=== PATIENT | female | born 1970 | race Caucasian/White ===

== ENCOUNTER → 2018-01-12 | Day surgery (SDC) | payer OTHER ==
[~2018-01-12] MED LIST: LIDOCAINE 2% PF Vial for OR 5 ML VIAL.; PROPOFOL 20 ML IV
[2018-01-12 06:29] LABS: POC GLUCOSE 112 mg/dL (70-99)
[2018-01-12] MEDS: IV RINGERS,LACTATED 1000ML 1,000 ML IV (06:32)
== END | disposition home or self-care (01) ==
LOC: ENDOS 05:55
DX: K22.2 Esophageal obstruction (principal); I10 Essential (primary) hypertension; E11.9 Type 2 diabetes mellitus without complications; Z88.5 Allergy status to narcotic agent; E66.9 Obesity, unspecified; Z68.36 Body mass index [BMI] 36.0-36.9, adult; Z79.82 Long term (current) use of aspirin; Z79.899 Other long term (current) drug therapy; Z90.49 Acquired absence of other specified parts of digestive tract; Z90.710 Acquired absence of both cervix and uterus; Z88.8 Allergy status to other drugs, medicaments and biological substances; Z86.73 Personal history of transient ischemic attack (TIA), and cerebral infarction without residual deficits; Z72.0 Tobacco use; Z79.84 Long term (current) use of oral hypoglycemic drugs
CPT/HCPCS: 43235; 82962; J2001; J2704

== ENCOUNTER → 2018-03-25 | Outpatient (CLI) | payer OTHER ==
[2018-01-12 07:38] VITALS: BP 125/61
[~2018-03-25] MED LIST changes: +ALEN35TA6 PO; +ASPI81TA50 PO; +ATOR40TA59 PO; +CALC1TAB75 PO; +CEPH-264 PO; +CHOL100013 PO; +CRESTOR5 MG PO; +HYDR-971 PO; -LIDOCAINE 2% PF Vial for OR 5 ML VIAL.; +LORA10TA3 PO; +LOSA50TA7 PO; +METF500T16 PO; +MOME13HF2 IH; +NAPR-514 PO; +ONDA4TAB10 SL; +OXYB5TAB7 PO; +PROAIR HFA8.5 GM INH; -PROPOFOL 20 ML IV; +TRAM50TA PO
--- NOTE | 2018-03-25 09:24 | RAD ---
Chest, 2 views, 03/25/2018: HISTORY: Chest pain The heart size and pulmonary vascularity are normal. There is minimal linear atelectasis or scarring laterally in the left base. The lungs are otherwise clear. There is no evidence of pleural fluid. Minimal spurring is present in the spine. Surgical clips are evident in the upper abdomen. IMPRESSION: Minimal left basilar linear atelectasis or scarring. Electronically signed by: Da Garcia MD (03/25/2018 9:20 AM) [facility]
--- NOTE | 2018-03-25 10:44 | RAD ---
DATE: 03/25/2018 EXAM: MAMMO JAXON ELVING RT, BREAST RIGHT HISTORY: Right breast pain COMPARISON: 08/31/2017 This study was interpreted with the benefit of Computerized Aided Detection (CAD). Breast Density: SCATTERED The breast parenchyma shows scattered fibroglandular densities. Breast parenchyma level B. FINDINGS: 2-D and 3-D tomosynthesis imaging was performed in CC and MLO projections. No new or enlarging breast densities are seen. Minimal benign type calcification is present. No suspicious microcalcifications have developed. Right breast ultrasound, 03/25/2018: A targeted ultrasound exam of the inferior aspect right breast was performed in the area of reported pain. Heterogeneous fibroglandular shadows are present. No mass or unusual fluid collection is seen. IMPRESSION: 1. Stable right mammograms without evidence of malignancy. 2. The targeted ultrasound exam of the inferior aspect of the right breast reveals no abnormality. 3. Clinical surveillance is suggested. BI-RADS CATEGORY: 2 BENIGN FINDING(S) RECOMMENDED FOLLOW-UP: 12M 12 MONTH FOLLOW-UP PQRS compliance statement: Patient information was entered into a reminder system with a target due date for the next mammogram. Mammography is a sensitive method for finding small breast cancers, but it does not detect them all and is not a substitute for careful clinical examination. A negative mammogram does not negate a clinically suspicious finding and should not result in delay in biopsying a clinically suspicious abnormality. "Our facility is accredited by the [employer] Mammography Program."
== END | disposition home or self-care (01) ==
LOC: US 07:42
PROVIDERS: ATTEND Family Medicine
DX: M46.04 Spinal enthesopathy, thoracic region (principal); N64.4 Mastodynia
CPT/HCPCS: 71046; 76641; 77065; G0279; 77061

== ENCOUNTER 2018-10-23 15:18 | Emergency (ER) | payer MEDICARE, MEDICAID ==
[~2018-10-23] VITALS: Ht 157.5 cm; Wt 98.9 kg
[~2018-10-23 15:18] MED LIST changes: +ALBU2.5V8 INH; +HYDR-3164 PO; -HYDR-971 PO; +LOSA-73 PO; -LOSA50TA7 PO; -PROAIR HFA8.5 GM INH
[2018-10-23 17:39] LABS: BILIRUBIN,URINE NEGATIVE (NEG); CLARITY,URINE CLEAR; COLOR,URINE YELLOW; NITRITE,URINE NEGATIVE (NEG); PH,URINE 5.5; PROTEIN,URINE NEGATIVE (NEG-TRACE); UROBILINOGEN,URINE 0.2 mg/dL (0.2 mg/dL)
[2018-10-23 17:47] LABS: BASO % 0 % (0-3); EOS # 0.1 x10^3/uL (0.0-0.7); EOS % 1 % (0-3); HEMATOCRIT 48.7 % (36.0-47.0); HEMOGLOBIN 16.9 g/dL (12.0-15.5); LYMPH # 1.5 x10^3/uL (1.0-4.8); LYMPH % 19 % (24-48); MEAN CORPUSCULAR HEMOGLOBIN 34 pg (25-35); MEAN CORPUSCULAR HGB CONC 35 g/dL (31-37); MEAN CORPUSCULAR VOLUME 98 fL (79-100); MONO # 0.5 x10^3/uL (0.0-1.1); MONO % 6 % (0-9); NEUT # 5.9 x10^3uL (1.8-7.7); NEUT % 74 % (31-73); PLATELET COUNT 196 x10^3/uL (140-400); RED BLOOD COUNT 4.99 x10^6/uL (3.50-5.40); RED CELL DISTRIBUTION WIDTH 13.3 % (11.5-14.5); WHITE BLOOD COUNT 8.1 x10^3/uL (4.0-11.0)
[2018-10-23 17:53] LABS: BACTERIA,URINE FEW /HPF (0-FEW); RBC,URINE 0 /HPF (0-2); SQUAMOUS EPITHELIAL CELL,UR FEW /LPF; WBC,URINE 0 /HPF (0-4)
[2018-10-23 17:56] LABS: CREATININE 0.7 mg/dL (0.6-1.0); GFR 89.3
[2018-10-23 18:08] LABS: ALBUMIN 3.8 g/dL (3.4-5.0); ALBUMIN/GLOBULIN RATIO 0.9 (1.0-1.7); TOTAL BILIRUBIN 0.5 mg/dL (0.2-1.0)
[2018-10-23] MEDS ORDERED: IV NORMAL SALINE 1000ML BAG 1,000 ML IV ONE (18:30)
[2018-10-23 19:15] VITALS: BP 131/78
--- NOTE | 2018-10-23 19:43 | PHYS DOC ---
Past Medical History Past Medical History: Diabetes-Type II, GERD, High Cholesterol, Hypertension, [place], Stroke Additional Past Medical Histor: 2 STROKES, [place] 2000 (ABDULKADIR VELASCO APRN) Past Surgical History: No Surgical History, Cholecystectomy, Hysterectomy, Tubal ligation (ABDULKADIR VELASCO APRN) Alcohol Use: None Drug Use: None (ABDULKADIR VELASCO APRN) Adult General Chief Complaint Chief Complaint: HYPERGLYCEMIA HPI HPI 48 y/o female presents to ER for c/o her BS may be high. She reports she hasn't been feeling good today with generalized fatigue. Pt denies CP, SOA, palpitations, abd pain, N/V/D, increased thirst/urination, or lethargy. She reports she came to ER to have her BS checked as it had been in the 200s at home- with her reporting at 1644 BS was 271 and that she had eaten today. She reports she hasn't drank as much water today. She denies any recent illness. She reports she had UTI and yeast infection 2 wks ago which was tx'd and sxs reso lved. She reports her doctor had changed her Metformin dose 2 wks ago d/t elevated A1c and is scheduled to go back in for f/u in 2 wks she thinks- uncertain as to appt. She reports she was increased to 1000 mg BID. (ABDULKADIR VELASCO APRN) Review of Systems Review of Systems Constitutional: Denies fever or chills. Reports feels fatigued- denying lethargy Eyes: Denies change in visual acuity, redness, or eye pain [] HENT: Denies nasal congestion or sore throat [] Respiratory: Denies cough or shortness of breath [] Cardiovascular: Denies CP/palpitations GI: Denies abdominal pain, nausea, vomiting, bloody stools or diarrhea [] : Denies dysuria or hematuria [] Musculoskeletal: Denies back/neck pain or joint pain [] Integument: Denies rash or skin lesions [] Neurologic: Denies headache, focal weakness or sensory changes. Reports just not feeling right- denies dizziness Endocrine: Denies polyuria or polydipsia [] All other systems were reviewed and found to be within normal limits, except as documented in this note. (ABDULKADIR VELASCO APRN) Current Medications Current Medications Current Medications Medications (Trade) Dose Ordered Sig/Jung Start Time Stop Time Status Last Admin Dose Admin Sodium Chloride 1,000 ml @ 1,000 mls/hr 1X ONCE 10/23/18 18:30 10/23/18 19:29 DC 10/23/18 18:27 1,000 MLS/HR (VISHNU CORNEJO MD) Allergies Allergies Allergies Coded Allergies Type Severity Reaction Last Updated Verified famotidine Allergy Intermediate 01/12/18 No morphine Allergy Intermediate 01/12/18 No (VISHNU CORNEJO MD) Physical Exam Physical Exam Constitutional: Well developed, well nourished, no acute distress, non-toxic appearance. Clear speech HENT: Normocephalic, atraumatic, bilateral ears normal, mucous membranes pink/dry, no oral exudates, nose normal. [] Eyes: 3mm PERRLA, EOMI- no pain with eye movements, no nystagmus, conjunctiva normal, no discharge. [] Neck: Normal range of motion, no tenderness, supple, no stridor. [] Cardiovascular: Heart rate regular rhythm, no murmur [] Lungs & Thorax: Bilateral breath sounds clear to auscultation- resp. equal/n onlabored Abdomen: Bowel sounds normal, soft, no tenderness, no masses, no pulsatile masses. [] Skin: Warm, dry, no erythema, no rash. [] Back: No tenderness, no CVA tenderness. [] Extremities: No tenderness, no cyanosis, no clubbing, ROM intact, no edema. [] Neurologic: Alert and oriented X 3, normal motor function, normal sensory function, no focal deficits noted. Produce Sorter equal. Symmetric facial features. No drift in extremities during exam Psychologic: Affect normal, judgement normal, mood normal. [] (ABDULKADIR VELASCO APRN) Current Patient Data Vital Signs Vital Signs Date Time Temp Pulse Resp B/P (MAP) Pulse Ox O2 Delivery O2 Flow Rate FiO2 10/23/18 19:15 82 16 131/78 (95) 100 Room Air 10/23/18 16:51 97.9 97.9 (VISHNU CORNEJO MD) Lab Values Laboratory Tests Test 10/23/18 16:44 10/23/18 17:24 10/23/18 17:40 10/23/18 19:28 Glucose (Fingerstick) 271 mg/dL (70-99) H 190 mg/dL (70-99) H Urine Collection Type Void Urine Color Yellow Urine Clarity Clear Urine pH 5.5 Urine Specific [place] >=1.030 Urine Protein Negative mg/dL (NEG-TRACE) Urine Glucose (UA) >=1000 mg/dL (NEG) Urine Ketones (Stick) Negative mg/dL (NEG) Urine Blood Negative (NEG) Urine Nitrite Negative (NEG) Urine Bilirubin Negative (NEG) Urine Urobilinogen Dipstick 0.2 mg/dL (0.2 mg/dL) Urine Leukocyte Esterase Negative (NEG) Urine RBC 0 /HPF (0-2) Urine WBC 0 /HPF (0-4) Urine Squamous Epithelial Cells Few /LPF Urine Bacteria Few /HPF (0-FEW) White Blood Count 8.1 x10^3/uL (4.0-11.0) Red Blood Count 4.99 x10^6/uL (3.50-5.40) Hemoglobin 16.9 g/dL (12.0-15.5) H Hematocrit 48.7 % (36.0-47.0) H Mean Corpuscular Volume 98 fL (79-100) Mean Corpuscular Hemoglobin 34 pg (25-35) Mean Corpuscular Hemoglobin Concent 35 g/dL (31-37) Red Cell Distribution Width 13.3 % (11.5-14.5) Platelet Count 196 x10^3/uL (140-400) Neutrophils (%) (Auto) 74 % (31-73) H Lymphocytes (%) (Auto) 19 % (24-48) L Monocytes (%) (Auto) 6 % (0-9) Eosinophils (%) (Auto) 1 % (0-3) Basophils (%) (Auto) 0 % (0-3) Neutrophils # (Auto) 5.9 x10^3uL (1.8-7.7) Lymphocytes # (Auto) 1.5 x10^3/uL (1.0-4.8) Monocytes # (Auto) 0.5 x10^3/uL (0.0-1.1) Eosinophils # (Auto) 0.1 x10^3/uL (0.0-0.7) Basophils # (Auto) 0.0 x10^3/uL (0.0-0.2) Sodium Level 132 mmol/L (136-145) L Potassium Level 4.0 mmol/L (3.5-5.1) Chloride Level 95 mmol/L (98-107) L Carbon Dioxide Level 25 mmol/L (21-32) Anion Gap 12 (6-14) Blood Urea Nitrogen 8 mg/dL (7-20) Creatinine 0.7 mg/dL (0.6-1.0) Estimated GFR (Cockcroft-Gault) 89.3 BUN/Creatinine Ratio 11 (6-20) Glucose Level 257 mg/dL (70-99) H Calcium Level 9.0 mg/dL (8.5-10.1) Total Bilirubin 0.5 mg/dL (0.2-1.0) Aspartate Amino Transferase (AST) 23 U/L (15-37) Alanine Aminotransferase (ALT) 59 U/L (14-59) Alkaline Phosphatase 111 U/L (46-116) Troponin I Quantitative < 0.017 ng/mL (0.000-0.055) Total Protein 8.0 g/dL (6.4-8.2) Albumin 3.8 g/dL (3.4-5.0) Albumin/Globulin Ratio 0.9 (1.0-1.7) L Laboratory Tests 10/23/18 17:40 Laboratory Tests 10/23/18 17:40 (VISHNU CORNEJO MD) EKG EKG EKG obtained 10/23/18 at 1832 Interpreted by ER physician Sinus rhythm Ltward axis Nonspec. ST/T wave changes Rate 82 No STEMI (ABDULKADIR VELASCO APRN) Radiology/Procedures Radiology/Procedures [] (ABDULKADIR VELASCO APRN) Course & Med Decision Making Course & Med Decision Making Pertinent Labs and Imaging studies reviewed. (See chart for details) 1930: On re-evaluation patient reports she is feeling better after IV fluids. Test results were discussed- initial accu check was 271 on labs BS was 257 with NL renal function. EKG was obtained as pt was vague on complaints just reporting she didn't feel right/concerns for BS. EKG with no acute ST elevation/STEMI and troponin was <0.017- she had denied any CP/palpitations. UA neg. for infection. H&H elevated and so discussed possible dehydration as pt reported improved sxs/feeling better with IV flds. Encouraged pt to drink adequate water daily. Patient plans to call her primary care physician for reevaluation on her blood sugars. Patient advised on keeping BS diary and taking that with her to her appointment. Recheck of blood sugar after IV fluids was 190- patient had no ketones in her UA and her anion gap was normal limits on labs at 12. Education provided on s&s to return to ER for and d/c instructions were discussed. Pt is smiling during d/c discussion sitting on side of bed- no visible distress. (ABDULKADIR VELASCO APRN) Course & Med Decision Making Staff Physician Addendum: I was working in the ER during the course of this patient's visit. I was available for consultation as needed, but I was not directly involved in the care of this patient. (VISHNU CORNEJO MD) Dragon Disclaimer Dragon Disclaimer This electronic medical record was generated, in whole or in part, using a voice recognition dictation system. (ABDULKADIR VELASCO APRN) Departure Departure Impression: Primary Impression: Elevated blood sugar Disposition: 01 HOME, SELF-CARE Condition: STABLE Referrals: BETTY ADDISON MD (PCP) Patient Instructions: Hyperglycemia Additional Instructions: Drink plenty of water daily. Continue to monitor your blood sugars and keep a diary to take with you to your doctor's appointment. Follow-up with your doctor for re-evaluation and further care. ABDULKADIR VELASCO APRN October 23, 2018 19:43 VISHNU CORNEJO MD October 30, 2018 21:50
--- NOTE | 2018-10-24 06:38 | EKG ---
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 CONSIDER INFERIOR INFARCT Electronically Signed On 10-26-2018 16:05:39 CDT by Marcello Carl
== END 2018-10-23 20:06 | disposition home or self-care (01) ==
LOC: ER 15:18
DX: E11.65 Type 2 diabetes mellitus with hyperglycemia (principal); E78.00 Pure hypercholesterolemia, unspecified; K21.9 Gastro-esophageal reflux disease without esophagitis; I10 Essential (primary) hypertension; I25.2 Old myocardial infarction; Z90.49 Acquired absence of other specified parts of digestive tract; Z90.710 Acquired absence of both cervix and uterus; Z98.51 Tubal ligation status; Z88.5 Allergy status to narcotic agent; Z88.8 Allergy status to other drugs, medicaments and biological substances
CPT/HCPCS: 36415; 80053; 81001; 82962; 84484; 85025; 93005; 96360; 99285; J7030

== ENCOUNTER → 2019-04-01 | Outpatient (CLI) | payer MEDICARE, MEDICAID ==
[~2019-04-01] MED LIST changes: +ALEN35TA11 PO; -ALEN35TA6 PO; +OXYB5TAB10 PO; -OXYB5TAB7 PO
--- NOTE | 2019-04-04 13:10 | RAD ---
DATE: 04/01/2019 EXAM: DIGITAL SCREEN BILAT W/CAD HISTORY: Routine screening COMPARISON: 09/07/2016 and 08/31/2017 mammographic exams This study was interpreted with the benefit of Computerized Aided Detection (CAD). Breast Density: FATTY The breast parenchyma is primarily fatty replaced. Breast parenchyma level density A. FINDINGS: Stable IMPRESSION: No suspicious mass, calcification, or distortion. BI-RADS CATEGORY: 1 NEGATIVE RECOMMENDED FOLLOW-UP: 12M 12 MONTH FOLLOW-UP PQRS compliance statement: Patient information was entered into a reminder system with a target due date for the next mammogram. Mammography is a sensitive method for finding small breast cancers, but it does not detect them all and is not a substitute for careful clinical examination. A negative mammogram does not negate a clinically suspicious finding and should not result in delay in biopsying a clinically suspicious abnormality. "Our facility is accredited by the [employer] Mammography Program."
== END | disposition home or self-care (01) ==
LOC: MAMMO 07:13
PROVIDERS: ATTEND Family Medicine
DX: Z12.31 Encounter for screening mammogram for malignant neoplasm of breast (principal)
CPT/HCPCS: 77067

== ENCOUNTER 2019-05-01 10:08 | Emergency (ER) | payer MEDICARE, MEDICAID ==
[~2019-05-01] VITALS: Ht 157.5 cm; Wt 87.1 kg
[2019-05-01] MEDS ORDERED: KETOROLAC 30 MG/ML VIAL. IVP ONE (10:45)
--- NOTE | 2019-05-01 10:46 | PHYS DOC ---
Past Medical History Past Medical History: Diabetes-Type II, GERD, High Cholesterol, Hypertension, [place], Stroke Additional Past Medical Histor: 2 STROKES, [place] 2001,herpes Past Surgical History: Cholecystectomy, Hysterectomy, Tubal ligation Alcohol Use: None Drug Use: None Adult General Chief Complaint Chief Complaint: SHOULDER INJURY HPI HPI Patient is a 48-year-old female who presents to the emergency department for evaluation. She states that she developed right shoulder pain, overnight, and has pain with movement of her shoulder. She denies any injury, fevers, neck pain, numbness, or weakness. Palpation of her right shoulder as well as attempted movement worsen her pain. There are no alleviating factors to her symptoms. She denies any chest pain or shortness of breath. Review of Systems Review of Systems Constitutional: Denies fever or chills [] Eyes: Denies change in visual acuity, redness, or eye pain [] HENT: Denies nasal congestion or sore throat [] Respiratory: Denies cough or shortness of breath [] Cardiovascular: The patient denies any shortness of breath, chest pain, palpitations, or orthopnea [] GI: Denies abdominal pain, nausea, vomiting, bloody stools or diarrhea [] : Denies dysuria or hematuria [] Musculoskeletal: Denies back pain or joint pain other than as noted in the history of present illness [] Integument: Denies rash or skin lesions [] Neurologic: Denies headache, focal weakness or sensory changes [] Endocrine: Denies polyuria or polydipsia [] All other systems were reviewed and found to be within normal limits, except as documented in this note. Current Medications Current Medications Current Medications Medications (Trade) Dose Ordered Sig/Jung Start Time Stop Time Status Last Admin Dose Admin Ketorolac Tromethamine (Toradol 30mg Vial) 30 mg 1X ONCE 05/01/19 10:45 05/01/19 10:46 DC 05/01/19 11:04 30 MG Allergies Allergies Allergies Coded Allergies Type Severity Reaction Last Updated Verified famotidine Allergy Intermediate 01/12/18 No morphine Allergy Intermediate 01/12/18 No Physical Exam Physical Exam PHYSICAL EXAM: CONSTITUTIONAL: Well developed, well nourished HEAD: normocephalic, atraumatic EENT: PERRL, EOMI. Conjunctivae normal color, sclerae non-icteric; moist mucous membranes. NECK: Supple, non-tender; no meningismus. LUNGS: Lungs CTA, breathing even and unlabored. Normal air movement. HEART: Regular rate and rhythm, no murmur CHEST: No deformity; non-tender ABDOMEN: The abdomen is soft, and non-tender, no masses or bruits. EXTREM: There is tenderness to palpation of the right shoulder with limited range of motion in the right shoulder secondary to pain, but internal Lexxel or rotation as well as flexion and extension are intact and present, and at approximately 30 of movement in any direction or not particularly tender. There is no warmth or erythema or significant deformity or swelling noted to the right shoulder joint. The remainder the right upper extremity is nontender with normal range of motion in the elbow, hand, and wrist, with normal sensation distally. The remainder the extremities are atraumatic, with Normal ROM; no deformity, no calf tenderness. Normal pulses palpable in all extremities. There is no pedal edema. SKIN: No rash; no diaphoresis NEURO: Alert; normal speech and cognition; CN's grossly intact; strength grossly intact without focal deficit. BACK: No CVA TTP. Current Patient Data Vital Signs Vital Signs Date Time Temp Pulse Resp B/P (MAP) Pulse Ox O2 Delivery O2 Flow Rate FiO2 05/01/19 10:26 98.2 72 18 157/74 (101) 100 Room Air 98.2 Lab Values Laboratory Tests Test 05/01/19 10:45 05/01/19 11:30 White Blood Count 10.5 x10^3/uL (4.0-11.0) Red Blood Count 4.59 x10^6/uL (3.50-5.40) Hemoglobin 16.1 g/dL (12.0-15.5) H Hematocrit 46.3 % (36.0-47.0) Mean Corpuscular Volume 101 fL (79-100) H Mean Corpuscular Hemoglobin 35 pg (25-35) Mean Corpuscular Hemoglobin Concent 35 g/dL (31-37) Red Cell Distribution Width 13.8 % (11.5-14.5) Platelet Count 214 x10^3/uL (140-400) Neutrophils (%) (Auto) 67 % (31-73) Lymphocytes (%) (Auto) 25 % (24-48) Monocytes (%) (Auto) 6 % (0-9) Eosinophils (%) (Auto) 2 % (0-3) Basophils (%) (Auto) 1 % (0-3) Neutrophils # (Auto) 7.0 x10^3/uL (1.8-7.7) Lymphocytes # (Auto) 2.7 x10^3/uL (1.0-4.8) Monocytes # (Auto) 0.6 x10^3/uL (0.0-1.1) Eosinophils # (Auto) 0.2 x10^3/uL (0.0-0.7) Basophils # (Auto) 0.1 x10^3/uL (0.0-0.2) Erythrocyte Sedimentation Rate 9 (0-25) Sodium Level 135 mmol/L (136-145) L Potassium Level 4.1 mmol/L (3.5-5.1) Chloride Level 101 mmol/L (98-107) Carbon Dioxide Level 25 mmol/L (21-32) Anion Gap 9 (6-14) Blood Urea Nitrogen 6 mg/dL (7-20) L Creatinine 0.7 mg/dL (0.6-1.0) Estimated GFR (Cockcroft-Gault) 89.3 Glucose Level 170 mg/dL (70-99) H Calcium Level 8.7 mg/dL (8.5-10.1) C-Reactive Protein, Quantitative 7.3 mg/L (0-3.3) H Laboratory Tests 05/01/19 10:45 Laboratory Tests 05/01/19 11:30 EKG EKG [] Radiology/Procedures Radiology/Procedures PROCEDURE: SHOULDER 2+V RIGHT Examination: SHOULDER 2+V RIGHT History: Right shoulder pain, limited range of motion Comparison/Correlation: None Findings: Portable 3 view right shoulder series was performed. Joint spaces are normal. No fracture or bony destruction. No definite degenerative change. Right lung field is unremarkable. Impression: No acute process. Unremarkable exam.[] Course & Med Decision Making Course & Med Decision Making Pertinent Labs and Imaging studies reviewed. (See chart for details) []2:00 PM: Patient's condition remains stable, she is feeling somewhat better. I discussed test results with the patient, the need for close follow-up with orthopedics, and return precautions in detail. I am not highly suspicious that her symptoms are related to a septic arthritis. She remains with reproducible tenderness to palpation of her shoulder, but no warmth, erythema, or deformity or effusion. Dragon Disclaimer Dragon Disclaimer This electronic medical record was generated, in whole or in part, using a voice recognition dictation system. Departure Departure Impression: Primary Impression: Shoulder pain Disposition: 01 HOME, SELF-CARE Condition: STABLE Referrals: BETTY ADDISON MD (PCP) VALORIE YODER II, MD Patient Instructions: Arthralgia, Shoulder Pain Additional Instructions: Applying ice to the affected area may help improve your symptoms. Do not keep the splint in place for greater than 24 hours at a time without a break to exercise the muscles of her shoulder to prevent "frozen shoulder". Scripts Diclofenac Sodium (DICLOFENAC SODIUM) 50 Mg Tablet.dr 1 TAB PO BID, #20 TAB 0 Refills Prov: MARCELINO STRONG MD 05/01/19 MARCELINO STRONG MD May 01, 2019 10:46
[2019-05-01 10:54] LABS: BASO # 0.1 x10^3/uL (0.0-0.2); BASO % 1 % (0-3); EOS # 0.2 x10^3/uL (0.0-0.7); EOS % 2 % (0-3); HEMATOCRIT 46.3 % (36.0-47.0); HEMOGLOBIN 16.1 g/dL (12.0-15.5); LYMPH # 2.7 x10^3/uL (1.0-4.8); LYMPH % 25 % (24-48); MEAN CORPUSCULAR HEMOGLOBIN 35 pg (25-35); MEAN CORPUSCULAR HGB CONC 35 g/dL (31-37); MEAN CORPUSCULAR VOLUME 101 fL (79-100); MONO # 0.6 x10^3/uL (0.0-1.1); MONO % 6 % (0-9); NEUT % 67 % (31-73); PLATELET COUNT 214 x10^3/uL (140-400); RED BLOOD COUNT 4.59 x10^6/uL (3.50-5.40); RED CELL DISTRIBUTION WIDTH 13.8 % (11.5-14.5); WHITE BLOOD COUNT 10.5 x10^3/uL (4.0-11.0)
--- NOTE | 2019-05-01 11:14 | RAD ---
Examination: SHOULDER 2+V RIGHT History: Right shoulder pain, limited range of motion Comparison/Correlation: None Findings: Portable 3 view right shoulder series was performed. Joint spaces are normal. No fracture or bony destruction. No definite degenerative change. Right lung field is unremarkable. Impression: No acute process. Unremarkable exam. Electronically signed by: Boris Cano MD (05/01/2019 11:11 AM) [facility]
[2019-05-01 11:45] LABS: CALCIUM 8.7 mg/dL (8.5-10.1); CREATININE 0.7 mg/dL (0.6-1.0); GFR 89.3; POTASSIUM 4.1 mmol/L (3.5-5.1)
[2019-05-01 11:49] LABS: C-REACTIVE PROTEIN 7.3 mg/L (0-3.3)
[2019-05-01 14:00] VITALS: BP 129/60
[2019-05-01] MEDS ORDERED: DICL50TA4 PO (14:04)
== END 2019-05-01 14:13 | disposition home or self-care (01) ==
LOC: ER 10:08
DX: M25.511 Pain in right shoulder (principal); E11.9 Type 2 diabetes mellitus without complications; K21.9 Gastro-esophageal reflux disease without esophagitis; E78.00 Pure hypercholesterolemia, unspecified; I10 Essential (primary) hypertension; I25.2 Old myocardial infarction; Z86.73 Personal history of transient ischemic attack (TIA), and cerebral infarction without residual deficits; Z88.5 Allergy status to narcotic agent; Z88.8 Allergy status to other drugs, medicaments and biological substances
CPT/HCPCS: 36415; 73030; 80048; 85025; 85651; 86140; 96374; 99285; J1885

== ENCOUNTER 2019-07-23 14:01 | Emergency (ER) | payer MEDICARE, MEDICAID ==
[~2019-07-23] VITALS: Ht 157.5 cm; Wt 91.0 kg
[~2019-07-23 14:01] MED LIST changes: +DICL50TA4 PO
[2019-07-23 14:20] VITALS: BP 158/71
--- NOTE | 2019-07-23 14:46 | RAD ---
EXAM: Right knee, 3 views. HISTORY: Fall. Pain. COMPARISON: None. FINDINGS: 3 views of the right knee are obtained. There is mild tricompartmental spurring. There is no fracture, dislocation or subluxation. There is no joint effusion. IMPRESSION: No acute osseous finding. Electronically signed by: Sharon Black MD (07/23/2019 2:43 PM) [id number]
[2019-07-23] MEDS ORDERED: NAPROXEN 500 MG TABLET PO STA (14:52)
[2019-07-23] MEDS ORDERED: NAPR-695 PO (15:07)
--- NOTE | 2019-07-23 15:08 | PHYS DOC ---
Past Medical History Past Medical History: Diabetes-Type II, GERD, High Cholesterol, Hypertension, [place], Stroke Additional Past Medical Histor: 2 STROKES, [place] 2000,herpes (PHYLLIS HO APRN) Past Surgical History: Cholecystectomy, Hysterectomy, Tubal ligation (PHYLLIS HO APRN) Alcohol Use: None Drug Use: None (PHYLLIS HO APRN) Adult General Chief Complaint Chief Complaint: KNEE INJURY HPI HPI Patient is a 48 year old female, accompanied by her friend, who presents to the emergency department with complaints of right knee pain. Patient states she has lung sounds some steps when she felt something in the back of her knee. She den ies any fall or traumatic injury. The patient currently rates her pain 8 out of 10 on the pain scale. Patient denies any alleviating factors, the pain increases with weightbearing and ambulation. She denies any numbness, tingling, weakness, or swelling of the affected extremity. All other ROS is neg unless otherwise noted in HPI. (PHYLLIS HO APRN) Review of Systems Review of Systems See Above (PHYLLIS HO APRN) Current Medications Current Medications Current Medications Medications (Trade) Dose Ordered Sig/Jung Start Time Stop Time Status Last Admin Dose Admin Naproxen (Naprosyn) 500 mg 1X STAT 07/23/19 14:52 07/23/19 14:55 DC 07/23/19 14:58 500 MG (LIDIA KURTZ DO) Allergies Allergies Allergies Coded Allergies Type Severity Reaction Last Updated Verified famotidine Allergy Intermediate 01/12/18 No morphine Allergy Intermediate 01/12/18 No (LIDIA KURTZ DO) Physical Exam Physical Exam See Above Constitutional: Well developed, well nourished, no acute distress, non-toxic appearance. [] HENT: Normocephalic, atraumatic, bilateral external ears normal, nose normal. [] Eyes: PERRLA, EOMI, conjunctiva normal, no discharge. [] Neck: Normal range of motion, no stridor. [] Cardiovascular:Heart rate regular rhythm, Lungs & Thorax: Respirations even and unlabored, no retractions, no respiratory distress Skin: Warm, dry, no erythema, no rash. [] Extremities: Diffuse R knee TTP, no crepitus, no deformity, no cyanosis, no clubbing, ROM intact, no edema, negative anterior and posterior drawer testing, pt does not tolerate stress testing. . [] Neurologic: Alert and oriented X 3, no focal deficits noted. [] Psychologic: Affect normal, judgement normal, mood normal. [] (PHYLLIS HO APRN) Current Patient Data Vital Signs Vital Signs Date Time Temp Pulse Resp B/P (MAP) Pulse Ox O2 Delivery O2 Flow Rate FiO2 07/23/19 14:20 98.2 83 16 158/71 (100) 95 Room Air 98.2 (LIDIA KURTZ DO) EKG EKG [] (PHYLLIS HO APRN) Radiology/Procedures Radiology/Procedures PROCEDURE: KNEE RIGHT 3V EXAM: Right knee, 3 views. HISTORY: Fall. Pain. COMPARISON: None. FINDINGS: 3 views of the right knee are obtained. There is mild tricompartmental spurring. There is no fracture, dislocation or subluxation. There is no joint effusion. IMPRESSION: No acute osseous finding.[] (PHYLLIS HO APRN) Course & Med Decision Making Course & Med Decision Making Pertinent Labs and Imaging studies reviewed. (See chart for details) [] (PHYLLIS HO APRN) Dragon Disclaimer Dragon Disclaimer This electronic medical record was generated, in whole or in part, using a voice recognition dictation system. (PHYLLIS HO APRN) Departure Departure Impression: Primary Impression: Pain in right knee Disposition: 01 HOME, SELF-CARE Condition: STABLE Referrals: NO PCP (PCP) VALORIE YODER II, MD Patient Instructions: Knee Pain, [id number] Additional Instructions: Fill prescription(s) and use as directed. Recommend application of ice, elevation, and rest of affected extremity. Wear the pedro wrap that was placed and crutches provided, activity as tolerated. Follow up with your Primary care doctor or Dr. Yoder for further evaluation. Return to the ER if your symptoms worsen. Scripts Naproxen (NAPROXEN) 375 Mg Tablet 1 TAB PO BID for 10 Days, #20 TAB 0 Refills Prov: PHYLLIS HO APRN 07/23/19 Splinting Splinting : Location: R knee Pre-Made Type: pedro wrap Pre-Proc Neuro Vasc Exam: normal Post-Proc Neuro Vasc Exam: normal, unchanged from pre-exam (PHYLLIS HO APRN) Attending Signature Attending Signature I have reviewed the PA/SOCIAL MEDIA PROJECT MANAGER's note and plan of care. I was available for consultation as needed during the patient's visit in the emergency department. I agree with the clinical impression, plan, and disposition. (LIDIA KURTZ DO) PHYLLIS HO APRN Jul 23, 2019 15:08 LIDIA KURTZ DO Jul 26, 2019 14:47
== END 2019-07-23 15:29 | disposition home or self-care (01) ==
LOC: ER 14:01
DX: M25.561 Pain in right knee (principal); E11.9 Type 2 diabetes mellitus without complications; K21.9 Gastro-esophageal reflux disease without esophagitis; E78.00 Pure hypercholesterolemia, unspecified; I10 Essential (primary) hypertension; I25.2 Old myocardial infarction; Z90.49 Acquired absence of other specified parts of digestive tract; Z90.710 Acquired absence of both cervix and uterus; Z98.51 Tubal ligation status; Z88.6 Allergy status to analgesic agent; Z88.8 Allergy status to other drugs, medicaments and biological substances
CPT/HCPCS: 73562; 99284

== ENCOUNTER → 2020-04-02 | Outpatient (CLI) | payer MEDICARE, MEDICAID ==
[~2020-04-02] MED LIST changes: -ALEN35TA11 PO; +ALEN35TA45 PO; +CALC-627 PO; -CALC1TAB75 PO; +NAPR-695 PO
--- NOTE | 2020-04-03 15:47 | RAD ---
DATE: 04/02/2020 8:47 AM EXAM: DIGITAL SCREEN BILAT W/CAD HISTORY: Screening COMPARISON: 04/01/2019 Bilateral full field craniocaudal and mediolateral oblique images were obtained using digital technique. This study was interpreted with the benefit of Computerized Aided Detection (CAD). FINDINGS: Breast Density: FATTY The Breast Parenchyma is primarily fatty replaced. Breast parenchyma level density A. No suspicious masses, microcalcifications or architectural distortion is present to suggest malignancy in either breast. The visualized axillae are unremarkable. IMPRESSION: No mammographic evidence of malignancy. BI-RADS CATEGORY: 1 NEGATIVE RECOMMENDED FOLLOW-UP: 12M 12 MONTH FOLLOW-UP Annual screening mammography is recommended, unless clinically indicated sooner based on symptoms or change in physical exam. PQRS compliance statement: Patient information was entered into a reminder system with a target due date for the next mammogram. Mammography is a sensitive method for finding small breast cancers, but it does not detect them all and is not a substitute for careful clinical examination. A negative mammogram does not negate a clinically suspicious finding and should not result in delay in biopsying a clinically suspicious abnormality. "Our facility is accredited by the [employer] Mammography Program."
== END ==
LOC: MAMMO 08:27
PROVIDERS: ATTEND Family Medicine
DX: Z12.31 Encounter for screening mammogram for malignant neoplasm of breast (principal)
CPT/HCPCS: 77067

== ENCOUNTER → 2021-03-14 | Outpatient (CLI) | payer MEDICARE, MEDICAID ==
[~2021-03-14] MED LIST changes: -ALEN35TA45 PO; +ALEN35TA47 PO
--- NOTE | 2021-03-14 17:37 | RAD ---
EXAMINATION: XR CHEST 2V CLINICAL HISTORY: Cough EXAM DATE/TIME: 03/14/2021 4:09 PM COMPARISON: 03/25/2018 FINDINGS: Lines, Tubes, and Devices: None. Cardiomediastinal Silhouette: Within normal limits. Lungs and Pleura: No evidence of focal airspace consolidation or pleural effusion. Minimal bibasilar subsegmental atelectasis and/or scarring. Pulmonary vasculature unremarkable. Bones and Soft Tissues: No acute osseous abnormality. IMPRESSION: No evidence of acute cardiopulmonary abnormality. Electronically signed by: Andrez Gaston DO (03/14/2021 5:34 PM) [id number]
== END ==
LOC: RAD 15:57
PROVIDERS: ATTEND Family Medicine
DX: R05 Cough (principal)
CPT/HCPCS: 71046

== ENCOUNTER 2021-03-26 05:58 | Day surgery (SDC) | payer MEDICARE, MEDICAID ==
[~2021-03-26] VITALS: Ht 157.5 cm; Wt 83.6 kg
[2021-03-26 06:41] VITALS: BP 128/62
[2021-03-26] MEDS ORDERED: IV RINGERS,LACTATED 1000ML 1,000 ML IV SCH (07:00)
[2021-03-26] MEDS ORDERED: PROPOFOL 10 MG/ML (20ML) VIAL. IV ONE (07:05)
[2021-03-26] MEDS ORDERED: LIDOCAINE 2% PF 5 ML VIAL. ONE (07:05)
--- NOTE | 2021-03-26 07:57 | HP ---
ADMIT DATE: 03/26/2021 UPDATED HISTORY AND PHYSICAL REASON FOR CONSULTATION: Rectal bleeding and weight loss. HISTORY: A 50-year-old female, whose past medical history is significant for osteoporosis, hyperlipidemia, hypertension and diabetes, is seen for diarrhea, weight loss and bleeding. There has been blood filling the toilet, bright red in nature. Weight is down 50+ pounds during this year due to the poor appetite. Family history is positive for colon cancer in grandmother. Her last colonoscopy was over 3 years ago without pathology. With continued issues, she requests additional evaluation. PAST MEDICAL HISTORY: Diabetes, hypertension, reflux, COPD, VA. ALLERGIES: FAMOTIDINE, MORPHINE. MEDICATIONS: Include albuterol, Fosamax, aspirin, atorvastatin, vitamin D, diclofenac, loratadine, losartan, metformin, Dulera, Naprosyn and oxybutynin. FAMILY HISTORY: Significant for colon cancer in a grandmother. Diabetes in grandfather. Pancreatic cancer in her mother. PAST SURGICAL HISTORY: Status post cholecystectomy, hysterectomy. REVIEW OF SYSTEMS: Per records. PHYSICAL EXAMINATION: GENERAL: Reveals a well-nourished, well-developed female who is alert, cooperative, in no acute distress. VITAL SIGNS: Temperature is 97.4, pulse 74, respiratory rate 18. LUNGS: Clear. CARDIOVASCULAR: Reveals an S1, S2, without S3, S4 or appreciable murmur. ABDOMEN: Soft abdomen, normal bowel sounds, without appreciable hepatosplenomegaly. IMPRESSION: Weight loss and rectal bleeding. Etiology is to be determined. Differential includes gastroparesis, peptic ulcer disease secondary to nonsteroidal antiinflammatory drugs, colon, gastric, and esophageal cancer, polyps, AVMs, celiac disease, ischemic colitis, diverticular disease. Therefore, recommend upper endoscopy and colonoscopy to further assess. Risks and benefits of procedure have been discussed previously with the patient including risks of hemorrhage and perforation and is willing to proceed at this time. ERIKA DR: Ramakrishna TID: [id number]
[2021-03-26 07:58] VITALS: BP 109/67
--- NOTE | 2021-03-28 18:11 | PATHOLOGY ---
[facility] Accession Number: [id number] . 01 Material submitted: . colon - RANDOM COLON BIOPSY . 01 Clinical history: . WT. LOSS, RECTAL BLEEDING, DIARRHEA EGD/COLON . 02 Diagnosis: Colonic mucosa, random colon biopsies: - No significant pathologic abnormalities. (M:pacu nurse; 03/28/2021) MBR 03/28/2021 1207 Local . 02 Comment: Sections of the random colon biopsy reveal multiple segments of colonic mucosa containing several mucosal-associated lymphoid aggregates. There is no evidence of a chronic destructive colitis, lymphocytic colitis, or collagenous colitis. (JPM:pacu nurse; 03/28/2021) . 02 Electronically signed: . Samy Bowles MD, Pathologist NPI- [id number] . 01 Gross description: . The specimen is received in formalin, labeled "Eva Ham, random colon biopsy". Received are multiple fragments of pale osman tissue measuring 2.0 x 0.7 x 0.1 cm in aggregate dimensions. The specimen is filtered and entirely submitted in cassette A1. ([facility]; 03/27/2021) NRI/NRI 03/27/2021 1557 Local . 02 Pathologist provided ICD-10: R63.4, K92.1, R19.7 . 02 CPT . 057605 Specimen Comment: A courtesy copy of this report has been sent to [phone], [phone] Specimen Comment: [id number], Specimen Comment: Report sent to , DR ADDISON / DR LOWE Performed at: 01 [facility] [address] [place] [address] [address], [place], [place] [id number] MD Hao Garcia MD Phone: [phone] Performed at: 02 [facility] [address] [place], [place] [id number] MD Samy Bowles MD Phone: [phone]
== END 2021-03-26 08:12 | disposition home or self-care (01) ==
LOC: ENDOS 05:58
PROVIDERS: ATTEND Internal Medicine Gastroenterology
DX: K92.1 Melena (principal); R63.4 Abnormal weight loss; R19.7 Diarrhea, unspecified; K64.0 First degree hemorrhoids; K57.30 Diverticulosis of large intestine without perforation or abscess without bleeding; K29.50 Unspecified chronic gastritis without bleeding; K63.89 Other specified diseases of intestine; K31.89 Other diseases of stomach and duodenum; E11.9 Type 2 diabetes mellitus without complications; I10 Essential (primary) hypertension; K21.9 Gastro-esophageal reflux disease without esophagitis; I25.2 Old myocardial infarction; E78.00 Pure hypercholesterolemia, unspecified; E66.9 Obesity, unspecified; J43.9 Emphysema, unspecified; F17.210 Nicotine dependence, cigarettes, uncomplicated; Z90.710 Acquired absence of both cervix and uterus; Z98.890 Other specified postprocedural states; Z79.899 Other long term (current) drug therapy; Z79.84 Long term (current) use of oral hypoglycemic drugs; Z88.6 Allergy status to analgesic agent; Z88.8 Allergy status to other drugs, medicaments and biological substances; Z80.0 Family history of malignant neoplasm of digestive organs; Z83.3 Family history of diabetes mellitus
CPT/HCPCS: 43235; 45380; J2704

== ENCOUNTER → 2021-03-26 | Outpatient (CLI) | payer MEDICARE, MEDICAID ==
[2021-03-26 07:34] LABS: FREE T4 1.06 ng/dL (0.76-1.46); THYROID STIM HORMONE (TSH) 0.889 uIU/mL (0.358-3.74)
[2021-03-26 08:07] LABS: ALBUMIN 3.7 g/dL (3.4-5.0); ALBUMIN/GLOBULIN RATIO 0.9 (1.0-1.7); CALCIUM 8.8 mg/dL (8.5-10.1); CREATININE 0.6 mg/dL (0.6-1.0); GFR 105.8; POTASSIUM 4.1 mmol/L (3.5-5.1); TOTAL BILIRUBIN 0.5 mg/dL (0.2-1.0); TOTAL PROTEIN 7.7 g/dL (6.4-8.2)
[2021-03-26 08:09] LABS: CHOLESTEROL/HDL RATIO 6.9
[2021-03-27 06:12] LABS: HEMOGLOBIN A1C 10.2 % (4.8-5.6)
== END ==
LOC: LAB 06:08
PROVIDERS: ATTEND Family Medicine
DX: E11.65 Type 2 diabetes mellitus with hyperglycemia (principal); L65.9 Nonscarring hair loss, unspecified; E78.5 Hyperlipidemia, unspecified; M85.80 Other specified disorders of bone density and structure, unspecified site
CPT/HCPCS: 36415; 80053; 80061; 82306; 83036; 84439; 84443

== ENCOUNTER → 2021-04-07 | Outpatient (CLI) | payer MEDICARE, MEDICAID ==
--- NOTE | 2021-04-07 17:19 | RAD ---
Bilateral digital screening 2-D and 3-D (digital breast tomosynthesis) mammogram: Reason for examination: Routine screening. Comparison: Mammograms from 04/02/2020 and 04/01/2019. Interpretation was made with the benefit of CAD. FINDINGS: Breast density: Category B. There are scattered areas of fibroglandular density. No suspicious breast mass, malignant appearing calcifications, or architectural distortion is seen. T here is a tiny oval circumscribed mass in the 12:00/central right breast which is unchanged last year 's mammogram. IMPRESSION: No evidence of malignancy. Assessment: BI-RADS 2. Benign findings. Recommendation: Routine screening mammograms. The patient will receive a letter with the results in the mail. Patient information will be entered i nto the mammography reminder system with a target recall date for the next mammogram. A reminder vivek er will be generated. Electronically signed by: Deepti Bob MD (04/07/2021 5:16 PM) [id number]
== END ==
LOC: MAMMO 07:56
PROVIDERS: ATTEND Family Medicine
DX: Z12.31 Encounter for screening mammogram for malignant neoplasm of breast (principal)
CPT/HCPCS: 77063; 77067

== ENCOUNTER → 2021-04-14 | Outpatient (CLI) | payer MEDICARE, MEDICAID ==
[~2021-04-14] MED LIST changes: +IOHEXOL 240 MG/ML 50ML VIAL. PO ONE; +IOHEXOL 300 MG/ML 100ML VIAL. IV ONE
--- NOTE | 2021-04-14 09:44 | RAD ---
EXAM: Abdomen and pelvis CT with intravenous contrast. HISTORY: Pain. TECHNIQUE: Computed tomographic images of the abdomen and pelvis were obtained following the administ ration of intravenous contrast. Multiplanar reformatting was performed. *One or more of the following individualized dose reduction techniques were utilized for this examina tion: 1. Automated exposure control. 2. Adjustment of the mA and/or kV according to patient size. 3. Use of iterative reconstruction technique. COMPARISON: None. FINDINGS: Evaluation of the lower thorax demonstrates a 3 mm faint linear nodular opacity within the right middle lobe. There is no infiltrate or pleural effusion. No hepatic lesion is seen. The gallbla dder is absent. The pancreas, spleen, stomach, adrenal glands and kidneys are unremarkable. There is no appendicitis. There is no bowel obstruction. There is no abnormal bowel wall thickening. There is mid to distal colonic diverticulosis. There is no convincing diverticulitis. The uterus is a bsent. The left ovary is unremarkable. The right ovary is not seen. The aorta is normal in caliber. There is no lymphadenopathy. There is subchondral sclerosis and spurr ing involving the sacroiliac joints. There is no acute osseous finding. IMPRESSION: 1. No acute abdominal or pelvic finding. 2. Colonic diverticulosis. 3. 3 mm faint pulmonary nodular opacity within the right middle lobe. This is likely benign. Electronically signed by: Sharon Black MD (04/14/2021 9:41 AM) [id number]
== END ==
LOC: CT 09:28
PROVIDERS: ATTEND Internal Medicine Gastroenterology
DX: K57.30 Diverticulosis of large intestine without perforation or abscess without bleeding (principal); R91.1 Solitary pulmonary nodule; M53.3 Sacrococcygeal disorders, not elsewhere classified; Z90.710 Acquired absence of both cervix and uterus
CPT/HCPCS: 74177; Q9966; Q9967